=== PATIENT | male | born 1955 | race Caucasian/White ===

== ENCOUNTER 2025-01-05 09:59 | Day surgery (SDC) | payer MEDICARE ==
--- NOTE | 2025-01-02 11:18 | HP ---
HISTORY OF PRESENT ILLNESS: The patient is a 69-year-old male who presents with a history of right hemicolectomy for colon cancer. He has occasional left lower quadrant pain. He has no other symptoms. He sees Dr. Diaz. PAST MEDICAL HISTORY: Colon cancer, depression, GERD, hyperlipidemia. MEDICATIONS: Omeprazole, valacyclovir, bupropion, rosuvastatin. PAST SURGICAL HISTORY: Hemicolectomy. FAMILY HISTORY: Diabetes. SOCIAL HISTORY: Former smoker. Daily alcohol. ALLERGIES: Statins. REVIEW OF SYSTEMS: CONSTITUTIONAL: Denies fever or chills. CHEST: Denies shortness of breath. CARDIOVASCULAR: Denies chest pain. ABDOMEN: Denies abdominal pain. PHYSICAL EXAMINATION: GENERAL: No acute distress. RESPIRATORY: Nonlabored. No shortness of breath. CARDIOVASCULAR: Regular rate and rhythm. ABDOMEN: Soft. ASSESSMENT: History of colon cancer. PLAN: Colonoscopy with Dr. Car Mcallister. This report was dictated for Dr. Mcallister by Jada Moran NP.
[2025-01-05] MEDS ORDERED: Lactated Ringers 1,000 ML IV ONE (10:05)
[2025-01-05] MEDS: Lactated Ringers 1,000 ML IV SCH (10:08)
[2025-01-05] MEDS ORDERED: propofoL IV ONE ×2 (12:04→12:59)
[2025-01-05] MEDS ORDERED: ROBINUL ONE (13:06)
[2025-01-05 13:50] VITALS: RESP 16
[2025-01-05 14:04] VITALS: BP 105/74; PULSE 63; TEMP 97.2; O2SAT 96
--- NOTE | 2025-01-06 09:35 | OP ---
SURGERY DATE/TIME: 01/05/2025 [id number] PREOPERATIVE DIAGNOSES: Followup colon cancer and left-sided abdominal pain. POSTOPERATIVE DIAGNOSIS: Patient has a normal exam today. He has a normal anastomosis and he has a normal exam. His left colon is a little redundant and is a little spastic. PROCEDURE: Colonoscopy. SURGEON: Car Mcallister MD DESCRIPTION OF PROCEDURE AND FINDINGS: Anal digital examination was satisfactory. Scope introduced. Scope advanced to the anastomosis. Picture of the anastomosis was normal. Circumferential withdrawal. Transverse, splenic, descending, sigmoid, rectum, anus, other than being a little redundant, was totally normal. Patient tolerated the procedure satisfactory. Anticipate followup. He has had a history of colon cancer. Anticipated followup 2 to 5 years.
== END 2025-01-05 14:10 | disposition home or self-care (01) ==
LOC: SDC 09:59
PROVIDERS: ATTEND Surgery
DX: Z08 Encounter for follow-up examination after completed treatment for malignant neoplasm (principal); Z85.038 Personal history of other malignant neoplasm of large intestine; Z90.49 Acquired absence of other specified parts of digestive tract; R10.9 Unspecified abdominal pain